=== PATIENT | female | born 1980 | race Two or more races ===

== ENCOUNTER 2018-01-12 01:39 | Inpatient (IN) | payer BC ==
[~2018-01-12] VITALS: Ht 157.5 cm; Wt 68.0 kg
[2018-01-12] MEDS ORDERED: PREN27TA7 PO (02:42)
[2018-01-12] MEDS ORDERED: LACTATED RINGER'S 1,000 ML IV SCH (03:23)
[2018-01-12] MEDS ORDERED: LACT. RINGERS/OXYTOCIN 20UNITS 1,000 ML IV SCH ×2 (03:23→08:12)
[2018-01-12] MEDS ORDERED: WITCH HAZEL-GLYCERIN PAD TOP PRN (03:30)
[2018-01-12] MEDS ORDERED: METHYLERGONOVINE MALEATE 0.2 MG/ML AMP IM PRN (03:30)
[2018-01-12] MEDS ORDERED: DERMOPLAST 60ML BOTTLE TOP PRN (03:30)
[2018-01-12] MEDS ORDERED: NALBUPHINE HCL 10 MG/1ml INJECTION IV PRN (03:30)
[2018-01-12] MEDS ORDERED: PHISODERM TOP SOLN 240ML BTL TOP PRN (03:30)
[2018-01-12] MEDS ORDERED: PROMETHAZINE HCL 25 MG/ML 1ML IV PRN (03:30)
[2018-01-12] MEDS ORDERED: LIDOCAINE 2% (LOCAL ANESTH.) PF 5ml SDV ID PRN (03:30)
[2018-01-12 04:35] LABS: Basophils # (auto) 0 uL; Basophils % (auto) 0.3 % (0.0-2.0); Eosinophils # (auto) 0 uL; Eosinophils % (auto) 0.4 % (0.0-7.0); Hemoglobin 12.3 g/dL (12.2-16.2); Lymphocytes # (auto) 1.8 uL; Lymphocytes % (auto) 17.3 % (10.0-50.0); Mean Corpuscular Hemoglobin 31.1 pg (28.0-32.0); Mean Corpuscular Hgb Conc. 34.2 g/dL (32.0-36.0); Mean Corpuscular Volume 90.9 fL (80.0-100.0); Monocytes # (auto) 0.5 uL; Monocytes % (auto) 4.7 % (0.0-12.0); Neutrophils # (auto) 7.9 uL; Neutrophils % (auto) 77.3 % (37.0-80.0); Platelet Count (auto) 202 10^3/uL (140-450); Red Blood Cells 3.96 10^6/uL (4.0-5.20); Red Cell Distribution Width 13.6 % (11.8-14.3); White Blood Cell 10.2 10^3/uL (4.4-10.8)
[2018-01-12 04:42] LABS: INR 0.87 (0.9-1.15); Partial Thromboplastin Time 25.7 sec (23.78-33.04); Prothrombin Time 9.4 sec (9.27-12.13)
[2018-01-12 04:50] LABS: Albumin 2.8 g/dL (3.4-5.0); BUN/Creatinine Ratio 17.5; Bilirubin, Total 0.3 mg/dL (0.2-1.0); Calcium 8.2 mg/dL (8.5-10.1); Potassium 3.5 mmol/L (3.5-5.1); Total Protein 6.7 g/dL (6.4-8.2)
[2018-01-12 04:52] LABS: Urine Bacteria MOD /hpf (None Seen); Urine Blood 1+ /uL (Negative); Urine Mucus FEW (None Seen); Urine Specific Gravity 1.019 (1.001-1.035); Urine WBC 2 /hpf (0 - 5)
[2018-01-12] MEDS ORDERED: ePHEDrine SULFATE 50 MG/ML AMP IV ONE ×2 (05:15→06:45)
[2018-01-12] MEDS ORDERED: fentaNYL W ROPIVACAINE 150 ML EPI SCH (05:15)
[2018-01-12] MEDS ORDERED: fentaNYL CITRATE 100 MCG/2 ML VL IV ONE ×2 (05:15→06:45)
[2018-01-12] MEDS ORDERED: NALOXONE HCL 0.4 MG/ML VIAL IV ONE ×2 (05:15→06:45)
[2018-01-12] MEDS ORDERED: LIDOCAINE HCL 2 %PF INJ 10ML AMP IJ ONE (05:15)
[2018-01-12] MEDS ORDERED: LIDOCAINE 2% (LOCAL ANESTH.) PF 5ml SDV ONE (05:27)
[2018-01-12] MEDS ORDERED: SODIUM CHLORIDE 0.9% 500 ML IV PRN (06:31)
[2018-01-12] MEDS ORDERED: TERBUTALINE SULFATE 1 MG/ML 1ML VIAL SC ONE (08:15)
[2018-01-12] MEDS ORDERED: ACETAMINOPHEN 325 MG TAB PO PRN (14:00)
[2018-01-12 15:00] VITALS: BP 112/60
[2018-01-12] MEDS: IBUPROFEN 600 MG TAB PO PRN ×2 (17:07→23:10)
[2018-01-12 19:00] VITALS: BP 117/60
[2018-01-12 23:13] VITALS: BP 103/55
[2018-01-13] MEDS: IBUPROFEN 600 MG TAB PO PRN ×3 (02:12→11:45)
[2018-01-13 03:09] VITALS: BP 120/61
[2018-01-13 07:19] VITALS: BP 108/64
[2018-01-13 11:12] VITALS: BP 118/64
[2018-01-13 15:00] VITALS: BP 130/75
[2018-01-14 10:11] LABS: Rubella Antibodies, IgG <0.90 index (Immune >0.99)
== END 2018-01-13 15:56 | disposition home or self-care (01) | DRG 775 ==
LOC: LDRP 01:39 → OBSVTOIN 01:39 → LDRP 03:21
PROVIDERS: ADMIT Specialist; ATTEND Specialist
PROC: 10E0XZZ Delivery of Products of Conception, External Approach (ICD-10-PCS; principal; 2018-01-12)
PROC: 0UQC0ZZ Repair Cervix, Open Approach (ICD-10-PCS; 2018-01-12)
PROC: 3E0S3BZ Introduction of Anesthetic Agent into Epidural Space, Percutaneous Approach (ICD-10-PCS; 2018-01-12)
PROC: 00HU33Z Insertion of Infusion Device into Spinal Canal, Percutaneous Approach (ICD-10-PCS; 2018-01-12)
DX: O69.81X0 Labor and delivery complicated by cord around neck, without compression, not applicable or unspecified (principal); O71.3 Obstetric laceration of cervix; Z37.0 Single live birth; O24.420 Gestational diabetes mellitus in childbirth, diet controlled; Z3A.39 39 weeks gestation of pregnancy; O34.40 Maternal care for other abnormalities of cervix, unspecified trimester; N81.2 Incomplete uterovaginal prolapse
CPT/HCPCS: 36415; 59025; 59409; 62282; 80053; 81001; 81002; 82948; 85025; 85610; 85730; 86762; 86850; 86900; 86901; 94760; 96365; 96366; 96374; 96375; G0378; J2590; J3010